=== PATIENT | male | born 1985 ===

== ENCOUNTER 2025-02-08 10:09 | Outpatient (CLI) | payer OTHER | END 2025-02-08 10:10 | disposition home or self-care (01) | LOC: BICMRI 10:09 → EDSEX 10:30 | PROVIDERS: ATTEND Nurse Practitioner Family | DX: Z02.6 Encounter for examination for insurance purposes (principal); S46.912A Strain of unspecified muscle, fascia and tendon at shoulder and upper arm level, left arm, initial encounter; S49.92XA Unspecified injury of left shoulder and upper arm, initial encounter ==